=== PATIENT | male | born 1980 | race Caucasian/White ===

== ENCOUNTER 2023-09-06 04:42 | Emergency (ER) | payer SELFPAY ==
[~2023-09-06] VITALS: Ht 175.3 cm; Wt 127.0 kg
[2023-09-06 04:53] VITALS: BP 131/91; PULSE 80; RESP 16; TEMP 98.2; O2SAT 97
[2023-09-06] MEDS ORDERED: METH-653 MT (05:55)
[2023-09-06] MEDS ORDERED: IBUP-2029 MT (05:55)
== END 2023-09-06 06:17 | disposition home or self-care (01) ==
LOC: ER 04:42
DX: S13.4XXA Sprain of ligaments of cervical spine, initial encounter (principal); E11.9 Type 2 diabetes mellitus without complications; Z90.49 Acquired absence of other specified parts of digestive tract; V89.2XXA Person injured in unspecified motor-vehicle accident, traffic, initial encounter; Y93.89 Activity, other specified; Y92.89 Other specified places as the place of occurrence of the external cause; Y99.8 Other external cause status
CPT/HCPCS: 99283